=== PATIENT | female | born 1955 | race Two or more races ===

== ENCOUNTER 2016-12-07 18:30 | Emergency (ER) | payer OTHER ==
--- NOTE | ~2016-12-07 | CR230 ---
[facility] A Service of [facility] & [facility] RADIOLOGY TEXT RESULTS PATIENT: ERASMO YOUNGER LOCATION: [facility] : 51 UNIT #: [id number] AGE: [address]: Shannon Lloyd MD SEX: F ORDER DR: [id number] [facility] [address] [place], [place] [address] [id number] E MR#: [id number] Acc #: [id number] NAME: ERASMO YOUNGER : 1955 SEX: F STUDY DATE/TIME: 12/07/2016 19:44 UNIT: [facility] ROOM: STUDY DESCRIPTION: CR Shoulder Min 2 View Rt Attending Physician: Shannon Lloyd M.D. Ordering Physician: Shannon Lloyd M.D. Primary Care Physician: Primary Care Physician No MEDICAL IMAGING REPORT This report is preliminary unless electronic signature is present EXAM Right shoulder, 3 views HISTORY SUPPLIED Right shoulder pain for 1 week. FINDINGS Three views are submitted. There is mild AC joint hypertrophic changes. There is mild degenerative changes on the greater tuberosity. No fractures are identified. No evidence of subluxation. CONCLUSION Mild degenerative changes, otherwise negative. Dictated by... Ramakrishna Irene M.D. THIS IS AN ELECTRONICALLY VERIFIED REPORT Ramakrishna Irene M.D. at 12/08/2016 6:07 PM GIANNA/cheryl TD: 12/08/2016 03:00 JOB #: [id number] MEDICAL IMAGING REPORT Page 1 of 1 COPY
--- NOTE | ~2016-12-07 | CT16 ---
[facility] A Service of [facility] & [facility] RADIOLOGY TEXT RESULTS PATIENT: ERASMO YOUNGER LOCATION: [facility] : 51 UNIT #: [id number] AGE: [address]: Shannon Lloyd MD SEX: F ORDER DR: [id number] [facility] [address] [place], [place] [address] [id number] E MR#: [id number] Acc #: [id number] NAME: ERASMO YOUNGER : 1955 SEX: F STUDY DATE/TIME: 12/07/2016 20:45 UNIT: [facility] ROOM: STUDY DESCRIPTION: CT Angio Chest for PE Attending Physician: Shannon Lloyd M.D. Ordering Physician: Shannon Lloyd M.D. Primary Care Physician: Primary Care Physician No MEDICAL IMAGING REPORT This report is preliminary unless electronic signature is present EXAM CT of the chest with IV contrast, CT angiography of the pulmonary arteries HISTORY Asthma, nonproductive cough, shortness of breath and wheezing, spitting up blood in the morning. TECHNIQUE Axial imaging of the chest was performed with an IV bolus of contrast media. CT angiography was performed with 3-D MIP multiplanar reconstructions through the pulmonary arteries. This CT examination was performed with one or more of the following radiation dose reduction techniques: automatic exposure control, adjustment of mA and/or kV according to patient size, and iterative reconstruction. FINDINGS No acute infiltrates are seen in the lungs. There is some scarring in the lingula. A small nodular density is seen along the minor fissure on the right. It measures approximately 2 mm in greatest diameter. In the right upper lobe, there is a 5 mm nodule and a 4 mm nodule. The 5 mm nodule is relatively dense and probably calcified. The smaller 4 mm nodule is likely calcified as well. No other significant nodules are seen. No pleural fluid is identified. No pericardial fluid is seen. No mediastinal masses or lymphadenopathy. Scans through the upper abdomen appear unremarkable. CT angiography was performed through the pulmonary arteries. There are no pulmonary artery filling defects to suggest the diagnosis of pulmonary embolism. CONCLUSION There are at least 3 small pulmonary nodules in the right lung. The largest measures about 5 mm and may be calcified. There is a smaller 4 mm STS. [facility] A Service of [facility] RADIOLOGY TEXT RESULTS PATIENT: ERASMO YOUNGER LOCATION: [facility] : 51 UNIT #: [id number] AGE: [address]: Shannon Lloyd MD SEX: F ORDER DR: nodule in the right upper lobe and there is a 2 mm nodule in the right middle lobe. Consider a followup scan in approximately 6 months to ensure stability of the nodules. CT of the chest is otherwise negative. Dictated by... Ramakrishna Irene M.D. THIS IS AN ELECTRONICALLY VERIFIED REPORT Ramakrishna Irene M.D. at 12/08/2016 6:08 PM GIANNA/margot TD: 12/08/2016 07:06 JOB #: [id number] MEDICAL IMAGING REPORT Page 1 of 1 COPY
--- NOTE | ~2016-12-07 | EKG ---
PATIENT: ERASMO YOUNGER UNIT #: [id number] Ventricular Rate: 78 BPM Atrial Rate: 78 BPM P-R Interval: 184 ms QRS Duration: 84 ms Q-T Interval: 404 ms QTC Calculation(Bezet): 460 ms P [place]: 39 degrees Calculated R [place]: -3 degrees Calculated T [place]: 50 degrees Diagnosis Line: Normal sinus rhythm Diagnosis Line: Nonspecific T wave abnormality Diagnosis Line: Abnormal ECG Diagnosis Line: Diagnosis Line: Confirmed by BCEKY TOLEDO MD ([id number]) on Diagnosis Line: 12/09/2016 1:28:09 PM INTERPRETING MD: ALVA
--- NOTE | ~2016-12-07 | CT114 ---
[facility]. [facility] A Service of [facility] & [facility] RADIOLOGY TEXT RESULTS PATIENT: ERASMO YOUNGER LOCATION: [facility] : 51 UNIT #: [id number] AGE: [address]: Shannon Lloyd MD SEX: F ORDER DR: [id number] [place] [id number] [place], [place] [address] [id number] E MR#: [id number] Acc #: [id number] NAME: ERASMO YOUNGER : 1955 SEX: F STUDY DATE/TIME: 12/07/2016 20:45 UNIT: [facility] ROOM: STUDY DESCRIPTION: CT Soft Tissue Neck W Cont Attending Physician: Shannon Lloyd M.D. Ordering Physician: Shannon Lloyd M.D. Primary Care Physician: No Primary Care Physician MEDICAL IMAGING REPORT This report is preliminary unless electronic signature is present EXAM CT soft tissue neck. HISTORY Sore throat for 1 week. TECHNIQUE Axial imaging of the neck was performed with an IV bolus of contrast media. This CT exam was performed with one or more of the following radiation dose reduction techniques: Automatic exposure control, adjustment of mA and/or kV according to patient size, and iterative reconstruction. FINDINGS There is bilateral maxillary sinus disease with a debris fluid level in the inferior aspect of the left maxillary sinus. There is relatively poor pneumatization of the mastoid cells. There is mucosal thickening in the ethmoid air cells. Nasopharynx appears normal. The question is raised of some thickening of the soft palate. No fluid collection is identified. There is also some soft tissue swelling in the hypopharynx, again without a discrete fluid collection. The larynx, subglottic airway all appear normal. There is no evidence of significant lymphadenopathy. No masses are identified. CONCLUSIONS 1. Bilateral maxillary and bilateral ethmoid sinusitis. There is a degree fluid level of the left maxillary sinus. 2. Mild soft tissue thickening of the soft palate and question raised of some soft tissue edema in the posterior oropharynx and hypopharynx. No well-defined fluid collection or mass is identified. There is no evidence of an abscess. Dictated by... STS. [facility] A Service of [facility] & [facility] RADIOLOGY TEXT RESULTS PATIENT: ERASMO YOUNGER LOCATION: [facility] : 51 UNIT #: [id number] AGE: [address]: Shannon Lloyd MD SEX: F ORDER DR: Ramakrishna Irene M.D. THIS IS AN ELECTRONICALLY VERIFIED REPORT Ramakrishna Irene M.D. at 12/08/2016 6:08 PM Micheal TD: 12/08/2016 07:20 JOB #: [id number] MEDICAL IMAGING REPORT Page 1 of 1 COPY
[2016-12-07 19:51] LABS: BASOPHIL# 0.1 X10e3 (0-0.3); BASOPHIL% 0.6 % (0-2.5); EOSINOPHIL# 2.2 X10e3 (0-0.7); EOSINOPHIL% 17.5 % (0.0-7.0); HEMATOCRIT 41.7 % (35.0-45.0); HEMOGLOBIN 13.8 gm/dL (12.0-16.0); LYMPHOCYTE# 4.4 X10e3 (1.0-3.5); LYMPHOCYTE% 34.4 % (17.0-45.0); MEAN CELL VOLUME 94.4 FL (83-96); MEAN CORPUSCULAR HEMOGLOBIN 31.1 PG (28-34); MEAN PLATELET VOLUME 7.1 FL (6.5-11.5); MONOCYTE# 0.9 X10e3 (0-1.0); MONOCYTE% 6.9 % (3.0-12.0); NEUTROPHIL# 5.2 X10e3 (1.5-7.1); NEUTROPHIL% 40.6 % (40-75); PLATELET COUNT 260 X10e3 (140-420); RED BLOOD COUNT 4.42 X10e (3.90-5.30); RED CELL DISTRIBUTION WIDTH 13.2 % (11.0-15.5); WHITE BLOOD COUNT 12.8 X10e3 (4.0-10.5)
[2016-12-07 19:53] LABS: DIFF IND NO
[2016-12-07 20:03] LABS: PARTIAL THROMBOPLASTIN TIME 25.2 SECONDS (23.5-31.3)
[2016-12-07 20:28] LABS: ALBUMIN SERUM 4.3 g/dL (3.5-5.0); BILIRUBIN, DIRECT 0.1 mg/dL (0.0-0.2); BILIRUBIN,INDIRECT 0.3 mg/dL (0.0-0.9); BILIRUBIN,TOTAL 0.4 mg/dL (0.2-2.0); BUN/CREATININE RATIO 14.44; CALCIUM SERUM 9.2 mg/dL (8.4-10.2); CREATININE SERUM 0.9 mg/dL (0.6-1.4); GLOM FILT RATE Estimated 68.1 mL/min (>60); POTASSIUM 3.7 mmol/L (3.5-5.1); PROTEIN TOTAL SERUM 7.9 g/dL (6.0-8.3)
[2016-12-12 10:00] LABS: POC - CKMB <1.0 ng/mL (0.0-7.9); POC - TROPONIN <0.05 ng/mL (<=0.05)
== END 2016-12-07 22:47 | disposition home or self-care (01) ==
LOC: CED 18:30
PROVIDERS: Emergency Medicine
DX: R06.2 Wheezing (principal); R06.02 Shortness of breath; E11.9 Type 2 diabetes mellitus without complications; Z88.0 Allergy status to penicillin
CPT/HCPCS: 36415; 70491; 71275; 73030; 80048; 80076; 82553; 83880; 84484; 85025; 85610; 85730; 93005; 94640; 96374; 96375; 99284; J1885; J2930; Q9967